=== PATIENT | female | born 1965 | race Caucasian/White ===

== ENCOUNTER 2021-05-27 20:08 | Emergency (ER) | payer BC, SELFPAY ==
--- NOTE | ~2021-05-27 | XR_ITS ---
EXAMINATION: XR FOOT, RIGHT CLINICAL INFORMATION: Dorsal pain COMPARISON: None TECHNIQUE: AP, lateral, and oblique views of the right foot. FINDINGS: The bones and soft tissues are notable for bulky calcaneal plantar spurring.. No fracture. Alignment is anatomic. Joint spaces are maintained. XR/XR foot RT 2V IMPRESSION: Calcaneal plantar spurring. No fracture.
[2021-05-27 20:25] VITALS: BP 104/63; PULSE 80; RESP 16; TEMP 37; O2SAT 96; BMI 35.9
--- NOTE | 2021-05-27 21:20 | ED_ITS ---
HPI - Extremity Problem General Chief complaint: Extremity Problem Stated complaint: foot pain Source: patient Mode of arrival: ambulatory Limitations: no limitations History of Present Illness HPI Narrative: To the ED for dorsal right foot pain. Patient states having this pain for at least 3 weeks. patient denies any Foot swelling, redness, recent trauma, coolness, deformity, leg swelling, calf pain, chest pain, shortness of breath, fever, or chills. Patient states when she walks she has pain on dorsal aspect of foot and when she moved foot. Patient denies any plantar foot pain or ankle leg pain. Related Data Previous Rx's Medication Instructions Recorded naproxen 500 mg PO BID PRN #20 tab 05/27/21 Allergies Allergy/AdvReac Type Severity Reaction Status Date / Time diphenhydramine Allergy Unknown SHORTNESS Unverified 08/03/20 16:48 [From BENADRYL] OF BREATH sulfamethoxazole Allergy Unknown HIVES Unverified 08/03/20 16:48 [From BACTRIM] trimethoprim [From BACTRIM] Allergy Unknown HIVES Unverified 08/03/20 16:48 Review of Systems Review of Systems: Yes all other systems are reviewed and are negative Constitutional: Constitutional: Reports as per HPI and Reports no additional constitutional complaints Eyes: Eyes: Reports as per HPI and Reports no additional eye complaints ENT: Reports system reviewed and no additional complaints, except as documented and Reports as per HPI Cardiovascular: Cardiovascular: Reports as per HPI and Reports no additional cardiovascular complaints Respiratory: Respiratory: Reports as per HPI and Reports no additional respiratory complaints Gastrointestinal: Gastrointestinal: Reports as per HPI and Reports no additional gastrointestinal complaints Genitourinary: Genitourinary: Reports no additional female genitourinary complaints and Reports as per HPI Musculoskeletal: Musculoskeletal: Reports no additional musculoskeletal complaints, Reports as per HPI and Reports arthralgias (Foot pain) Neurologic: Reports system reviewed and no additional complaints, except as documented and Reports as per HPI Psychiatric: Psychiatric: Reports no additional psychiatric complaints and Reports as per HPI [facility] Past Medical History Medical History (Updated 05/28/21 @ 00:01 by Pamella Colby) Anxiety Asthma GERD (gastroesophageal reflux disease) IBS (irritable bowel syndrome) Plantar fasciitis Social History Social History Advance Directives: No Advance Directives Information Provided: No Patient : No Physical Exam Vital Signs: Vital Signs: Last Vital Signs Temp 98.6 F 05/27/21 20:25 Pulse 80 05/27/21 20:25 Resp 16 05/27/21 20:25 BP 104/63 05/27/21 20:25 Pulse Ox 96 05/27/21 20:25 Body Mass Index 35.9 Const: General: cooperative, healthy appearing, comfortable, no acute distre ss, well developed, alert, awake and Physically active Orientation/consciousness: patient oriented x3 HENMT: Head: Yes normal to inspection, Yes No palpable skull fracture present, Yes normocephalic and Yes atraumatic Eyes: General: appearance normal, both eyes and all related structures Neck: Neck: Yes normal visual inspection, Yes full ROM, Yes no lymphadenopathy, Yes no meningeal signs, Yes trachea midline, Yes supple and No tender Chest: Chest palpation & inspection: normal inspection of the chest and normal palpation of entire chest wall Resp: Effort & Inspection: normal respiratory effort and able to speak in complete sentences Auscultation: clear to auscultation bilaterally Cardio: Jugular venous distension: no JVD Heart sounds: S2 normal heart sound present GI: Inspection: Yes normal to inspection and No abdominal wall ecchymosis Palpation (GI): Soft to palpation, not firm, nontender, no guarding and not rigid : General: No CVA tenderness and Yes no CVA tenderness Back/Spine/Pelvis: Back: no CVA tenderness, No CVA tenderness and No back tenderness Skin: General skin exam: no rashes or lesions noted and elasticity normal Neuro: General: patient oriented x3, no meningeal signs and CN's II-XI intact bilaterally Cranial nerves: Yes CN's II-XII intact bilaterally Extrem: General: Yes normal to inspection and Yes full ROM Ankle/foot/toe images: 1. Tenderness. Negative for deformity irredness, : Negative for ulcers, open wounds, pus discharge, or foul odor. Palpable pulses intact. Motor/neuro exam/vascular exam intact. Negative for coolness, deformity, ecchymosis, or bluish discoloration of toes Psych: Appearance: grossly normal, well kempt and not disheveled Course Course Course Narrative: Patient will go for x-ray Reevaluation(s) Reevaluation #1: X-ray negative for any fractures. X-ray shows calcaneal spur Time: 21:45 MDM - Extremity (Nontraumatic) MDM Narrative Medical decision making narrative: Foot pain Discharge Plan Discharge Clinical Impression: Acute foot pain Patient Disposition: Home, Self-Care Instructions: Arthralgia (ED), Heel Spur (ED) Additional Instructions: X-ray came back negative for fracture. The x-ray shows heel spur. Return to the ED immediately for any swelling, redness, pus discharge, foul odor, fever, chills, wounds, or any other concerning symptoms. Please follow-up with PCP Prescriptions: New naproxen 500 mg tablet 500 mg PO BID PRN (Reason: pain) Qty: 20 RF: 0 Interventions: ED Discharge Assessment Last Done: 05/27/21 22:04 Discharge Date/Time: 05/27/21 22:06 Print Language: Tongan
== END 2021-05-27 22:06 | disposition home or self-care (01) ==
PROVIDERS: Emergency Provider Internal Medicine; PCP Nurse Practitioner Family
DX: M79.671 Pain in right foot (principal)
CPT/HCPCS: 73620; 99283

== ENCOUNTER → 2021-06-26 10:56 | Outpatient (REF) | payer BC, SELFPAY ==
--- NOTE | ~2021-06-26 | NM_ITS ---
EXAMINATION: NM BONE SCAN 3-PHASE CLINICAL INFORMATION: Question stress right foot. COMPARISON: Right foot x-ray 05/27/2021 TECHNIQUE: Following intravenous administration of 30 mCi of 99m technetium MDP, a 3-phase bone scan of both feet was obtained. In addition, 3-phase whole body was performed. FINDINGS: On 1st phase of bone scan, there is increased flow activity seen in the right ankle. On 2nd phase of bone scan, there is increased activity seen along the right lateral midfoot region. On 3rd phase of both feet, there is increased activity visualized in the right lateral midfoot region and minimal activity in the left lateral midfoot region. On plantar images, there is increased activity seen in the right proximal 4th metatarsal region which could represent a stress fracture. In addition, mild activity is seen on the dorsal aspect of the midfoot region likely in the intertarsal joints minimally more prominent on the right than the left. On whole body imaging, there is mild increased activity in the nasal cavity. No abnormal activity is seen in the skull, entire spine, upper extremity, thoracic cage, pelvis, or lower extremity. Normal activity seen in bilateral patella. NM/NM bone 3 phase IMPRESSION: Mild increased activity in the 1st and 2nd phase of bone scan in the right midfoot region laterally. On the 3rd phase, there is focal activity seen along the right midfoot region and proximal 4th metatarsal. These findings are not conclusive for stress fracture, however, may represent bone marrow contusion. The first 2 phases of bone scan left foot are normal. On the 3rd phase, there is mild increased activity in the left lateral midfoot region but to a lesser degree compared to right foot.
== END ==
LOC: HO.NUCMED 10:56
PROVIDERS: Visit Provider Podiatrist
DX: R94.8 Abnormal results of function studies of other organs and systems (principal)
CPT/HCPCS: 78315; A9503

== ENCOUNTER 2022-10-21 20:55 | Emergency (ER) | payer BC, SELFPAY ==
--- NOTE | 2022-10-21 | ECG_ITS ---
Test Reason : UPPER RESP Blood Pressure : / mmHG Vent. Rate : 102 BPM Atrial Rate : 102 BPM P-R Int : 116 ms QRS Dur : 074 ms QT Int : 342 ms P-R-T Axes : 024 042 005 degrees QTc Int : 445 ms Sinus tachycardia Otherwise normal ECG When compared with ECG of 24-OCT-2017 20:09, No significant change was found Referred By: Generic ED Physician Electronically Signed By:KEERTHI MITCHELL MD
--- NOTE | ~2022-10-21 | XR_ITS ---
EXAMINATION: XR CHEST CLINICAL INFORMATION: S0A COMPARISON: Chest radiograph 08/17/2018 TECHNIQUE: Frontal view of the chest was obtained. FINDINGS: No significant abnormality is noted involving the heart, lungs, mediastinum, bony thorax or soft tissues. XR/XR chest 1V IMPRESSION: Unremarkable examination.
[2022-10-21 21:36] VITALS: BP 100/58; PULSE 104; RESP 16; TEMP 37.3; O2SAT 96; BMI 34.0
[2022-10-22 00:07] VITALS: BP 112/67; PULSE 91; RESP 18; TEMP 36.7; O2SAT 99
--- NOTE | 2022-10-22 00:50 | PC.NURSE ---
Pt refused blood work x 2 MD notified.
[2022-10-22 00:52] LABS: COVID-19 Test Negative (Negative)
--- NOTE | 2022-10-22 01:13 | PC.NURSE ---
MD to bedside for primary eval.
[2022-10-22 01:32] VITALS: BP 106/61; PULSE 85; RESP 19; TEMP 36.8; O2SAT 99
--- NOTE | 2022-10-22 01:39 | ED.URI ---
HPI - URI/Sore Throat General Chief Complaint: Upper Respiratory Symptoms Stated Complaint: asthma, sore throat, abdominal pain Time Seen by Provider: 10/22/22 00:44 Source: patient Mode of arrival: ambulatory Limitations: no limitations History of Present Illness HPI Narrative: This is 56 years old female presented to the emergency department with a chief complaint of upper respiratory symptoms/cough , she has history of asthma, symptoms started about 2 days ago MD elicited complaint: cough Onset (ago): hour(s) (1) Consistency: constant Severity: moderate Description of mucous: clear Exacerbating factors: nothing Relieving factors: nothing Related Data Previous Rx's Medication Instructions Recorded naproxen 500 mg tablet 500 mg PO BID PRN pain #20 tabs 05/27/21 doxycycline monohydrate 100 mg 100 mg PO BID 7 days #14 caps 10/22/22 capsule (Monodox) prednisone 20 mg tablet 60 mg PO DAILY #12 tabs 10/22/22 Allergies Allergy/AdvReac Type Severity Reaction Status Date / Time diphenhydramine Allergy Unknown SHORTNESS Unverified 08/03/20 16:48 [From BENADRYL] OF BREATH sulfamethoxazole Allergy Unknown HIVES Unverified 08/03/20 16:48 [From BACTRIM] trimethoprim [From BACTRIM] Allergy Unknown HIVES Unverified 08/03/20 16:48 Review of Systems Review of Systems: Yes all other systems are reviewed and are negative Eyes: Eyes: Reports no additional eye complaints Cardiovascular: Cardiovascular: Reports no additional cardiovascular complaints Respiratory: Respiratory: Reports cough PMFSH Past Medical History Medical History Anxiety Asthma GERD (gastroesophageal reflux disease) IBS (irritable bowel syndrome) Plantar fasciitis Social History Social History Use of substances other than those prescribed or required for medical reasons: No Advance Directives: No Advance Directives Information Provided: Yes Physical Exam Vital Signs: Vital Signs: Last Vital Signs Temp 98.3 F 10/22/22 01:32 Pulse 85 10/22/22 01:32 Resp 19 10/22/22 01:32 BP 106/61 10/22/22 01:32 Pulse Ox 99 10/22/22 01:32 O2 Del Method 10/22/22 01:32 BMI result Body Mass Index 34.0 She looks well she has no toxic-appearing Const: General: cooperative Nutritional Appearance: well nourished Orientation/consciousness: patient oriented x3 Limitations: no limitations HEENT: Head: Yes normal to inspection Ears: hearing grossly normal bilaterally General nose exam: Normal external nose present Face and sinus: Yes normal facial exam Mouth: Normal oral and palatal mucosa present Neck: Neck: Yes normal visual inspection Chest: Chest palpation & inspection: normal inspection of the chest Resp: Effort & Inspection: normal respiratory effort Auscultation: rhonchi Cardio: Jugular venous distension: no JVD Rate: regular rate Rhythm: regular rhythm GI: Inspection: Yes normal to inspection Palpation (GI): Soft to palpation, not firm and nontender Auscultation: normal bowel sounds Back/Spine/Pelvis: Cervical Spine: normal cervical lordosis Skin: General skin exam: no rashes or lesions noted, elasticity normal and turgor normal Lesions: no lesions Rashes: no rashes Neuro: General: patient oriented x3 Medications Administered Discontinued Medications Generic Name Dose Route Start Last Admin Trade Name Freq PRN Reason Stop Dose Admin Doxycycline Monohydrate 100 mg 10/22/22 01:39 10/22/22 01:58 Doxycycline Monohydrate 100 Mg Capsule PO 10/22/22 01:40 100 mg ONCE ONE Administration Prednisone 60 mg 10/22/22 01:34 10/22/22 01:57 Prednisone 20 Mg Tablet PO 10/22/22 01:35 60 mg ONCE ONE Administration Medical Decision Making Medical Decision Making [facility] Narrative: Patient is stable clinically good O2 sat no tachypnea chest x-ray negative, I think it is reasonable to discharge her home on prednisone and the p.o. antibiotic Independent interpretation of EKG, rhythm strip, radiology study: Independent interp EKG,rhythm strip, radiology study I performed an independent interpretation of the: EKG (EKG was reviewed by me normal sinus rhythm rate [address]-T changes) and Plain X-Ray My interpretation is EXAMINATION: XR CHEST CLINICAL INFORMATION: S0A COMPARISON: Chest radiograph 08/17/2018 TECHNIQUE: Frontal view of the chest was obtained. FINDINGS: No significant abnormality is noted involving the heart, lungs, mediastinum, bony thorax or soft tissues. XR/XR chest 1V IMPRESSION: Unremarkable examination. ? Discharge Plan Discharge Clinical Impression: Upper respiratory infection, Bronchitis Patient Disposition: Home, Self-Care Instructions: Upper Respiratory Infection (ED), Chronic Bronchitis (ED) Prescriptions: New prednisone 20 mg tablet 60 mg PO DAILY Qty: 12 0RF doxycycline monohydrate [Monodox] 100 mg capsule 100 mg PO BID 7 Days Qty: 14 0RF No Action naproxen 500 mg tablet 500 mg PO BID PRN (Reason: pain) Qty: 20 0RF Referrals: Christina Enrique [employer]IER [Primary Care Provider] - 2 days Stand Alone Forms: Work/School Release Interventions: ED Discharge Assessment Last Done: 10/22/22 02:00 Discharge Date/Time: 10/22/22 02:00
[2022-10-22] MEDS: predniSONE 20 MG TABLET 60 MG PO (01:57)
[2022-10-22] MEDS: Doxycycline Monohydrate 100 MG CAPSULE PO (01:58)
== END 2022-10-22 02:00 | disposition home or self-care (01) ==
PROVIDERS: Emergency Provider Emergency Medicine; PCP Nurse Practitioner Family
DX: J06.9 Acute upper respiratory infection, unspecified (principal); J40 Bronchitis, not specified as acute or chronic; Z20.822 Contact with and (suspected) exposure to COVID-19
CPT/HCPCS: 71045; 87635; 93005; 99283; 99284

== ENCOUNTER 2024-12-04 22:03 | Emergency (ER) | payer BC, SELFPAY ==
[2024-12-04 22:05] VITALS: BP 159/75; PULSE 92; RESP 16; TEMP 35.9; O2SAT 95; BMI 35.9
[2024-12-04 22:21] LABS: Appearance Urine Turbid; Color Urine Orange; Glucose Urine UA Negative (Negative); Leukocyte Esterase Urine Large (3+) (Negative); Nitrite Urine Negative (Negative); PH 5.5 (5.0-9.0); Specific Gravity - Urine 1.015 (1.005-1.025); UMIC TRIGGER UACC YES; Urine Blood Large (3+) (Negative); Urine Ketones Trace mg/dL (Negative); Urine Protein 100 (2+) mg/dL (Neg-Trace)
[2024-12-04 22:25] LABS: Bacteria Urine 1+ (None Seen); Hyaline Casts Urine 0-2 /LPF (0-2); RBC Urine >20 /HPF (0-2); Squamous Epithelial Cell Urine 0-2 /HPF (0-2); UACC Culture Trigger YES; WBC Urine >50 /HPF (0-5)
[2024-12-05 00:03] VITALS: BP 110/60; PULSE 88; RESP 16; TEMP 36.5; O2SAT 97
--- NOTE | 2024-12-05 00:57 | ED.FEMALEGU ---
HPI - Female Genitourinary General Chief complaint: Urogenital-Female Stated complaint: ? uti Time Seen by Provider: 12/05/24 00:11 Source: patient Limitations: no limitations History of Present Illness ED Provider: Gabriella Dallas PA-C HPI Narrative: 59-year-old female with a history of recurrent UTIs presents with dysuria x1 day. Associated low back pain, denies nausea, vomiting or fever. Related Data Home Medications ?Medication ?Instructions ?Recorded ?Confirmed albuterol sulfate 2.5 mg/3 mL mg inhalation Q6H PRN wheezing 05/15/23 (0.083 %) solution for nebulization albuterol sulfate 90 mcg/actuation 0 mcg inhalation 05/15/23 aerosol inhaler alosetron 1 mg tablet mg PO 05/15/23 benzonatate 100 mg capsule 100 mg PO TID 05/15/23 estradiol 0.01% (0.1 mg/gram) 0.5 g vaginal 2XW 05/15/23 vaginal cream gabapentin 300 mg capsule mg PO 05/15/23 levothyroxine 88 mcg tablet 88 mcg PO DAILY 05/15/23 lorazepam 0.5 mg tablet 0.5 mg PO TID PRN 05/15/23 meclizine 25 mg tablet 25 mg PO TID PRN 05/15/23 montelukast 10 mg tablet 10 mg PO DAILY 05/15/23 omeprazole 20 mg capsule,delayed 20 mg PO BID 05/15/23 release Previous Rx's ?Medication ?Instructions ?Recorded naproxen 500 mg tablet 500 mg PO BID PRN pain #20 tabs 05/27/21 doxycycline monohydrate 100 mg 100 mg PO BID 7 days #14 caps 10/22/22 capsule (Monodox) prednisone 20 mg tablet 60 mg (3 x 20 mg) PO DAILY #12 tabs 10/22/22 amoxicillin 600 mg-potassium 7.12643 ml PO BID 10 days #145.833 05/15/23 clavulanate 42.9 mg/5 mL oral mL suspension amoxicillin 875 mg-potassium 1 tab PO Q12H 10 days #20 tabs 05/15/23 clavulanate 125 mg tablet cephalexin 500 mg capsule 500 mg PO BID #13 caps 12/05/24 fluconazole 200 mg tablet 200 mg PO DAILY #1 tab 12/05/24 (Diflucan) phenazopyridine 200 mg tablet 200 mg PO TID PRN pain #10 tabs 12/05/24 (Pyridium) Allergies Allergy/AdvReac Type Severity Reaction Status Date / Time diphenhydramine Allergy Unknown SHORTNESS Verified 12/04/24 22:08 [From BENADRYL] OF BREATH sulfamethoxazole Allergy Unknown HIVES Verified 12/04/24 22:08 [From BACTRIM] trimethoprim [From BACTRIM] Allergy Unknown HIVES Verified 12/04/24 22:08 Review of Systems Review of Systems: Yes all other systems are reviewed and are negative Constitutional: Constitutional: Denies fatigue and Denies fever(s) Cardiovascular: Cardiovascular: Denies chest pain and Denies dyspnea Respiratory: Respiratory: Denies dyspnea Gastrointestinal: Gastrointestinal: Denies abdominal pain, Denies nausea and Denies vomiting Genitourinary: Genitourinary: Reports dysuria Musculoskeletal: Musculoskeletal: Reports back pain Endocrine: Endocrine: Denies fatigue PMFSH Past Medical History Attestation statement: The following information was validated with the patient. Medical History Anxiety Asthma GERD (gastroesophageal reflux disease) IBS (irritable bowel syndrome) Plantar fasciitis Social History Social History Patient Tobacco Use Status: Never used Tobacco Advance Directives: No Advance Directives Information Provided: Yes Do you have a plan to hurt others: No Plan Physical Exam Vital Signs: Vital Signs: Last Vital Signs Temp 97.7 F 12/05/24 00:03 Pulse 88 12/05/24 00:03 Resp 16 12/05/24 00:03 BP 110/60 12/05/24 00:03 Pulse Ox 97 12/05/24 00:03 O2 Del Method Room Air 12/05/24 00:03 BMI result Body Mass Index 35.9 Const: Other: Alert, well-appearing Orientation/consciousness: patient oriented x3 Resp: Effort & Inspection: normal respiratory effort Cardio: Other: Normal peripheral perfusion GI: Other: Abdomen is soft, nondistended nontender no guarding Back/Spine/Pelvis: Other: No CVA tenderness Skin: Other: Warm dry no rash Neuro: General: patient oriented x3, no focal motor deficits and CN's II-XI intact bilaterally Psych: Other: Calm cooperative Medical Decision Making Medical Decision Making MDM Narrative: 59-year-old female with a history of recurrent UTIs presents with dysuria x1 day. Associated low back pain, denies nausea, vomiting or fever. Problem: Recurrent urinary tract infection History: Per patient I have considered the following differential diagnoses: Urinary tract infection, renal colic, pyelonephritis Plan: Urine collected from triage she has a urinary tract infection. She has no CVA tenderness nor any systemic symptoms to suggest pyelonephritis. She is not having any flank pain, no active vomiting, she is well-appearing, to suggest renal colic. Do not feel she requires imaging. We will treat accordingly. I have independently reviewed the following tests: Labs: Evidence of UTI Lab Data Labs: Lab Results 12/04/24 Range/Units 22:13 Urine Color [place] A Urine Appearance Turbid Urine pH 5.5 (5.0-9.0) Ur Specific [place] 1.015 (1.005-1.025) Urine Protein 100 (2+) H (Neg-Trace) mg/dL Urine Glucose (UA) Negative (Negative) mg/dL Urine Ketones Trace (Negative) mg/dL Urine Blood Large (3+) H (Negative) Urine Nitrite Negative (Negative) Ur Leukocyte Esterase Large (3+) H (Negative) Urine RBC >20 H (0-2) /HPF Urine WBC >50 H (0-5) /HPF Ur Squamous Epith Cells 0-2 (0-2) /HPF Urine Bacteria 1+ (None Seen) Hyaline Casts 0-2 (0-2) /LPF Discharge Plan Discharge Clinical Impression: Urinary tract infection Patient Disposition: Home, Self-Care Instructions: Urinary Tract Infection in Women (ED) Additional Instructions: You were found to have a urinary tract infection. See home care instructions. Take the cephalexin as directed, this is an antibiotic. Use the Pyridium as needed, this will help with bladder pain. You should start taking an [id number] probiotic that is specific for genitourinary health for women. They come in a gummy formulation, you can purchase them anywhere. I would keep taking the probiotics indefinitely. It may help you to prevent further urinary tract infections. I am also sending you with a dose of Diflucan, this is antifungal medication, if you develop a secondary vaginal yeast infection from being on the antibiotic. Take it if you develop vaginal discharge and itching. Continue to follow up with your primary care provider as needed. Prescriptions: New fluconazole [Diflucan] 200 mg tablet 200 mg PO DAILY Qty: 1 0RF cephalexin 500 mg capsule 500 mg PO BID Qty: 13 0RF phenazopyridine [Pyridium] 200 mg tablet 200 mg PO TID PRN (Reason: pain) Qty: 10 0RF No Action naproxen 500 mg tablet 500 mg PO BID PRN (Reason: pain) Qty: 20 0RF prednisone 20 mg tablet 60 mg PO DAILY Qty: 12 0RF doxycycline monohydrate [Monodox] 100 mg capsule 100 mg PO BID 7 Days Qty: 14 0RF lorazepam 0.5 mg tablet 0.5 mg PO TID PRN albuterol sulfate 90 mcg/actuation HFA aerosol inhaler 0 mcg inhalation benzonatate 100 mg capsule 100 mg PO TID estradiol 0.01 % (0.1 mg/gram) cream 0.5 g vaginal 2XW meclizine 25 mg tablet 25 mg PO TID PRN albuterol sulfate 2.5 mg /3 mL (0.083 %) solution for nebulization inhalation Q6H PRN (Reason: wheezing) montelukast 10 mg tablet 10 mg PO DAILY levothyroxine 88 mcg tablet 88 mcg PO DAILY alosetron 1 mg tablet PO omeprazole 20 mg capsule,delayed release(DR/EC) 20 mg PO BID gabapentin 300 mg capsule PO amoxicillin-pot clavulanate 875-125 mg tablet 1 tab PO Q12H 10 Days Qty: 20 0RF amoxicillin-pot clavulanate 600-42.9 mg/5 mL suspension for reconstitution 7.64279 ml PO BID 10 Days Qty: 145.833 0RF Rx Instructions: may give 7.3 ml Stand Alone Forms: Work/School Release Print Language: Guinean
[2024-12-05] MEDS: cephALEXin 500 MG CAPSULE PO (01:11)
[2024-12-05] MEDS: Phenazopyridine HCL 200 MG TABLET PO (01:11)
[2024-12-05 01:38] VITALS: BP 110/60; PULSE 88; RESP 16; TEMP 36.5; O2SAT 97
== END 2024-12-05 01:39 | disposition home or self-care (01) ==
PROVIDERS: Emergency Provider Emergency Medicine; PCP Nurse Practitioner Family
DX: N39.0 Urinary tract infection, site not specified (principal); R30.0 Dysuria; M54.50 Low back pain, unspecified; Z79.899 Other long term (current) drug therapy
CPT/HCPCS: 81001; 87086; 99283